=== PATIENT | female | born 1985 | race Caucasian/White ===

== ENCOUNTER 2016-08-09 15:43 | Emergency (ER) | payer OTHER | END 2016-08-09 17:26 | disposition home or self-care (01) | DX: S62.636A Displaced fracture of distal phalanx of right little finger, initial encounter for closed fracture (principal); W20.8XXA Other cause of strike by thrown, projected or falling object, initial encounter | CPT/HCPCS: 1040M; 29130; 73140; 99283 ==

== ENCOUNTER 2016-09-11 10:43 | Day surgery (SDC) | payer OTHER ==
[2016-09-11] MEDS ORDERED: ceFAZolin 2 GM/50 ML 50 ML IV ONE (10:50)
[2016-09-11] MEDS ORDERED: LACTATED RINGERS 1,000 ML IV ONE ×3 (11:00→17:27)
[2016-09-11] MEDS ORDERED: DEXAMETHASONE 4 MG/ML VIAL IVP ONE (17:00)
[2016-09-11] MEDS ORDERED: MIDAZOLAM 2 MG/2 ML VIAL IVP ONE (17:00)
[2016-09-11] MEDS ORDERED: METOCLOPRAMIDE 10 MG/2 ML VIAL IVP ONE (17:00)
[2016-09-11] MEDS ORDERED: fentaNYL 100 MCG/2 ML VIAL IVP ONE (17:00)
[2016-09-11] MEDS ORDERED: LIDOCAINE-MPF 2% 5 ML VIAL IM ONE (17:00)
[2016-09-11] MEDS ORDERED: KETOROLAC 30 MG/ML VIAL IVP ONE (17:00)
[2016-09-11] MEDS ORDERED: ONDANSETRON 4 MG/2 ML VIAL IVP ONE (17:00)
[2016-09-11] MEDS ORDERED: PROPOFOL 200 MG/20 ML VIAL IVP ONE (17:00)
[2016-09-11] MEDS ORDERED: BUPIVACAINE 0.5% PF 30 ML VIAL INFIL ONE (17:30)
[2016-09-11] MEDS: fentaNYL 100 MCG/2 ML VIAL ONE ×2 (18:56→19:14)
[2016-09-11] MEDS ORDERED: ACETAMINOPHEN 1,000 MG/100 ML 100 ML IV ONE (19:49)
== END 2016-09-11 10:44 | disposition home or self-care (01) ==
PROC: 0PST04Z Reposition Right Finger Phalanx with Internal Fixation Device, Open Approach (ICD-10-PCS; principal; 2016-09-11 11:45)
DX: S62.636A Displaced fracture of distal phalanx of right little finger, initial encounter for closed fracture (principal); W22.8XXA Striking against or struck by other objects, initial encounter; Y93.9 Activity, unspecified; Y92.39 Other specified sports and athletic area as the place of occurrence of the external cause; F41.9 Anxiety disorder, unspecified; F32.9 Major depressive disorder, single episode, unspecified
CPT/HCPCS: 26765; 81025; J0131; J0690; J7120

== ENCOUNTER 2016-10-17 07:26 | Outpatient (CLI) | payer OTHER | END 2016-10-17 07:27 | disposition home or self-care (01) | DX: M20.011 Mallet finger of right finger(s) (principal) ==

== ENCOUNTER 2016-10-20 14:25 | Emergency (ER) | payer OTHER | END 2016-10-20 16:58 | disposition home or self-care (01) | DX: M54.9 Dorsalgia, unspecified (principal); M54.2 Cervicalgia; W07.XXXA Fall from chair, initial encounter; Y99.0 Civilian activity done for income or pay; Z87.891 Personal history of nicotine dependence; R03.0 Elevated blood-pressure reading, without diagnosis of hypertension ==

== ENCOUNTER 2016-11-13 10:31 | Day surgery (SDC) | payer OTHER ==
[2016-11-13] MEDS ORDERED: ceFAZolin 2 GM/50 ML 50 ML IV ONE (10:47)
[2016-11-13 11:22] LABS: HCG UR QUAL NEGATIVE
[2016-11-13] MEDS ORDERED: LACTATED RINGERS 1,000 ML IV ONE (11:30)
[2016-11-13] MEDS ORDERED: BUPIVACAINE 0.25% PF 30 ML VIAL SUBQ ONE (13:33)
[2016-11-13] MEDS ORDERED: ONDANSETRON 4 MG/2 ML VIAL IVP ONE (13:33)
[2016-11-13] MEDS ORDERED: fentaNYL 100 MCG/2 ML VIAL IVP ONE (13:33)
[2016-11-13] MEDS ORDERED: PROPOFOL 200 MG/20 ML VIAL IVP ONE (13:33)
[2016-11-13] MEDS ORDERED: DEXAMETHASONE 4 MG/ML VIAL IVP ONE (13:33)
[2016-11-13] MEDS ORDERED: LIDOCAINE-MPF 2% 5 ML VIAL IM ONE (13:33)
[2016-11-13] MEDS ORDERED: BUPIVACAINE 0.5% PF 30 ML VIAL INFIL ONE ×2 (13:37)
[2016-11-13] MEDS ORDERED: MEPERIDINE 50 MG/ML SYRINGE ONE (14:55)
[2016-11-13] MEDS ORDERED: ACETAMINOPHEN 1,000 MG/100 ML 100 ML IV ONE (15:19)
[2016-11-13 15:48] VITALS: BP 123/52
--- NOTE | 2016-11-29 09:47 | OPERATIVE REPORT ---
DATE OF SURGERY: 11/13/2016 00:00:00 PREOPERATIVE DIAGNOSIS: Failed mallet finger repair, right small finger. POSTOPERATIVE DIAGNOSIS: Failed mallet finger repair, right small finger. PROCEDURE: Revision of right small finger mallet repair. SURGEON: Moises Underwood MD ASSISTANTS: None. MATERIAL TO LAB: None. SPONGE AND NEEDLE COUNTS: Correct. ANESTHESIA: General endotracheal. FINDINGS: Same. TOURNIQUET: Right arm at 42 minutes at 250 mmHg without complications. COMPLICATIONS: None. ESTIMATED BLOOD LOSS: None. SPECIMEN REMOVED AND CULTURES: None. IMPLANTS: JuggerKnot Mini anchor (1 mm). FLUIDS: 1000 mL of lactated Ringer's. CONDITION AT END OF PROCEDURE: Stable. DISPOSITION: PACU, then home. INDICATIONS: This is an otherwise healthy 31-year-old female who had sustained a mallet fracture on t he dorsal base of the distal phalanx of her right small finger. The patient had been managed conserv atively with a stack splint, which had failed to reduce her deformity. We then took her to the operat ing room and attempted a repair of the fragment over the base of the distal phalanx. A pull-through w carlos suture was used. However, in the intervening several weeks, she noted a recurrence of the deformity in her finger with increase in pain and dysfunction. Radiographs were reviewed, which showed recurrence of her deformity and volar subluxation of the dist al phalanx. We elected to bring her back to the operating room to revise her repair. PROCEDURE IN DETAIL: After consent and identification, the patient was brought to the operating room in the supine position on the operating litter. After induction of a general endotracheal anesthesia and appropriate monitoring, the right upper extr emity was outstretched on a hand table. The upper extremity was then prepped and draped free in the u sual sterile fashion for hand surgery. After an appropriate timeout was conducted, we pronated the forearm, exsanguinated the upper extremit y and inflated the tourniquet to 250 mmHg. With the forearm in a pronated position, we reopened the i ncision over the dorsal aspect of the distal interphalangeal joint. We identified a significant bony osteophyte, which had formed as a result of the callus from the original repair. This was carefully r emoved with a combination of curette and rongeur. Bony tissue was not sent. We identified the remnants of the insertion of the profundus extensor tendon and tagged this with a s uture. We then inserted a 1 mm JuggerKnot anchor into the distal phalanx using standard technique. Th e 3-0 FiberWire suture was then placed into the distal slip of the tendon in a modified Limon weave , tensioned, and then tied off. This affected a good repair and there was no further ventral subluxation of the distal phalanx. The wound was irrigated and closed with a running 3-0 nylon suture. Xeroform gauze was applied followed by a splint and sterile dressing. On completion of the procedure, the patient was extubated and transferred to the recovery room in goo d condition having tolerated the procedure well. JOB #: [id number] EXT JOB #:[id number]
== END 2016-11-13 10:32 | disposition home or self-care (01) ==
LOC: SDS 10:31
PROVIDERS: ATTEND Orthopaedic Surgery
PROC: 0XQV0ZZ Repair Right Little Finger, Open Approach (ICD-10-PCS; principal; 2016-11-13 11:25)
DX: M20.011 Mallet finger of right finger(s) (principal)
CPT/HCPCS: 26433; 81025; J0131; J0690; J7120

== ENCOUNTER 2017-12-15 22:46 | Emergency (ER) | payer OTHER ==
[2017-12-15 23:13] LABS: BILIRUBIN,URINE NEGATIVE (NEGATIVE); GLUCOSE, URINE (UA) NEGATIVE (NEGATIVE); KETONES,URINE (UA) NEGATIVE (NEGATIVE); LEUKOCYTE ESTERASE, URINE NEGATIVE (NEGATIVE); NITRITE,URINE NEGATIVE (NEGATIVE); OCCULT BLOOD,URINE MODERATE (NEGATIVE); PROTEIN,URINE NEGATIVE (NEGATIVE); UROBILINOGEN,URINE 0.2 (NORMAL) E.U./dL (NORMAL)
[2017-12-15 23:15] LABS: CLARITY,URINE CLEAR (CLEAR)
[2017-12-15 23:16] LABS: HCG UR QUAL NEGATIVE
[2017-12-15 23:18] LABS: BACTERIA,URINE Rare /HPF (None Seen); SQUAMOUS EPITHELIAL CELL,UR FEW Squamous (<= Few)
--- NOTE | 2017-12-15 23:32 | ED Physician Documentation ---
PD HPI FEMALE - Stated complaint Stated Complaint: FEMALE - Chief complaint Chief Complaint: Abd Pain - History obtained from History obtained from: Patient - History of Present Illness Timing - onset: Yesterday Timing - details: Gradual onset, Still present Associated symptoms: Vaginal bleeding Similar symptoms before: Work up / diagnostics Recently seen: Not recently seen - Additional information Additional information: Patient is a 32 year old female with a history of uterine fibroids and factor V leiden who is presenting to the emergency department for vaginal bleeding. Patient states that she soaked through numerous pads throughout the day today. patient has had fibroids partially removed in the past but she bled too much during the procedure so they had to stop. Patient has follow up next week but she called to convention worker nurse who told her to come to the emergency department. 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 GROWER: Fibroids : None HEENT: Other Psych: Depression, Anxiety, Panic attacks Musculoskeletal: Other Derm: None Other Past Medical History: Factor 5 blood disorder - Past Surgical History Past Surgical History: Yes Ortho: Spine surgery, Other /BULB GROWER: Other HEENT: Tonsil/Adenoidectomy - Present Medications Home Medications: Ambulatory Orders Medication Instructions Recorded Confirmed Norethindrone AC-Eth Estradiol 1 each PO DAILY 09/12/15 11/13/16 [Loestrin 21 1-20 Tablet] Sertraline HCl [Zoloft] 100 mg PO DAILY 09/12/15 12/15/17 Ibuprofen [Motrin] 800 mg PO Q8H PRN 09/11/16 11/13/16 - Allergies Allergies/Adverse Reactions: Allergies Allergy/AdvReac Type Severity Reaction Status Date / Time Latex, Natural Rubber Allergy Rash Verified 12/15/17 22:52 lorazepam [From Ativan] Allergy Unknown Verified 12/15/17 22:52 - Social History Does the pt smoke?: No Smoking Status: Never smoker Does the pt drink ETOH?: Yes Does the pt have substance abuse?: No - Immunizations Immunizations are current?: Yes - POLST Patient has POLST: No PD ED PE NORMAL - General General: Alert and oriented X 3, No acute distress, Well developed/nourished - HEENT HEENT: Atraumatic, PERRL - Neck Neck: Supple, no meningeal sign - Cardiac Cardiac: RRR - Respiratory Respiratory: No respiratory distress, Clear bilaterally - Abdomen Abdomen: Soft, Non tender, Non distended - Female Female : Deferred - Derm Derm: Normal color, Warm and dry - Extremities Extremities: No deformity - Neuro Neuro: Alert and oriented X 3 Eye Opening: Spontaneous Motor: Obeys Commands Verbal: Oriented GCS Score: 15 - Psych Psych: Normal mood Results - Vitals Vitals: Vital Signs - 24 hr 12/15/17 12/16/17 22:48 00:41 Temperature 37.2 C Heart Rate 87 91 Respiratory 16 16 Rate Blood Pressure 142/72 H 146/96 H O2 Saturation 99 95 Oxygen O2 Source Room air - Labs Labs: Laboratory Tests 12/15/17 12/15/17 12/15/17 23:05 23:05 23:23 WBC 9.0 RBC 4.07 L Hgb 10.7 L Hct 32.8 L MCV 80.5 L MCH 26.3 L MCHC 32.7 RDW 15.4 H Plt Count 391 MPV 7.0 L Neut # (Auto) 4.3 Lymph # (Auto) 4.0 H [place] # (Auto) 0.6 Eos # (Auto) 0.1 Baso # (Auto) 0.1 Absolute Nucleated RBC 0.00 Nucleated RBC % 0.0 PT INR APTT Sodium Potassium Chloride Carbon Dioxide Anion Gap BUN Creatinine Estimated GFR (MDRD) Glucose Calcium Total Bilirubin AST ALT Alkaline Phosphatase Total Protein Albumin Globulin Albumin/Globulin Ratio Lipase Urine Color YELLOW Urine Clarity CLEAR Urine pH 6.0 Ur Specific [place] 1.025 1.025 Urine Protein NEGATIVE Urine Glucose (UA) NEGATIVE Urine Ketones NEGATIVE Urine Occult Blood MODERATE H Urine Nitrite NEGATIVE Urine Bilirubin NEGATIVE Urine Urobilinogen 0.2 (NORMAL) Ur Leukocyte Esterase NEGATIVE Urine RBC 6-10 H Urine WBC 0-3 Ur Squamous Epith Cells FEW Squamous Urine Bacteria Rare Ur Microscopic Review INDICATED Urine Culture Comments NOT INDICATED Urine HCG, Qual NEGATIVE 12/15/17 12/15/17 23:23 23:23 WBC RBC Hgb Hct MCV MCH MCHC RDW Plt Count MPV Neut # (Auto) Lymph # (Auto) [place] # (Auto) Eos # (Auto) Baso # (Auto) Absolute Nucleated RBC Nucleated RBC % PT 10.4 INR 0.9 APTT 25.0 Sodium 138 Potassium 3.5 Chloride 109 Carbon Dioxide 21 Anion Gap 8.0 BUN 10 Creatinine 0.7 Estimated GFR (MDRD) 97 Glucose 138 H Calcium 9.0 Total Bilirubin 0.3 AST 19 ALT 19 Alkaline Phosphatase 46 Total Protein 7.4 Albumin 3.9 Globulin 3.5 Albumin/Globulin Ratio 1.1 Lipase 34 Urine Color Urine Clarity Urine pH Ur Specific [place] Urine Protein Urine Glucose (UA) Urine Ketones Urine Occult Blood Urine Nitrite Urine Bilirubin Urine Urobilinogen Ur Leukocyte Esterase Urine RBC Urine WBC Ur Squamous Epith Cells Urine Bacteria Ur Microscopic Review Urine Culture Comments Urine HCG, Qual PD MEDICAL DECISION MAKING - ED course Complexity details: reviewed old records, reviewed results, re-evaluated patient , considered differential, d/w patient, d/w human resources consultant ED course: Patient was seen and examined at bedside. patient's vital signs were within normal limits. Patient stated that her bleeding had actually started to improve. IV access was gained and labs were drawn. patient's hemoglobin was stable at 10.7 (there was no comparison). freight caller WILDLIFE MANAGER was contacted and the case was discussed with him. He recommended iron supplementation and possibly Lupron as an outpatient. Patient was asymptomatic aside from the bleeding. Patient was given detailed discharge and follow up instructions. Patient required no further work up at this time and was stable for discharge with outpatient follow up. - Sepsis Event Vital Signs: Vital Signs - 24 hr 12/15/17 12/16/17 22:48 00:41 Temperature 37.2 C Heart Rate 87 91 Respiratory 16 16 Rate Blood Pressure 142/72 H 146/96 H O2 Saturation 99 95 Oxygen O2 Source Room air Departure - Departure Disposition: 01 Home, Self Care Clinical Impression: Fibroids Condition: Good Instructions: ED Fibroids Follow-Up: Valentín Mcknight DO [Provider Admit Priv/Credential] - Within 3 Days Comments: Your vital signs and diagnostics were stable today. You should start taking iron three times a day. Make sure you take it with plenty of water and a stool softener as it can cause constipation. You should follow up with your doctor on sunday and you can talk to him/her about starting lupron injections. You should return to the emergency department for dizziness, syncope worsening or non stop symptoms.
[2017-12-15 23:45] LABS: BASOPHILS # (AUTO) 0.1 10^3/uL (0.0-0.1); BASOPHILS % (AUTO) 0.7 %; EOSINOPHILS # (AUTO) 0.1 10^3/uL (0.0-0.7); EOSINOPHILS % (AUTO) 0.8 %; HGB - HEMOGLOBIN 10.7 g/dL (12.0-16.0); LYMPHOCYTES % (AUTO) 44.1 %; MEAN CORPUSCULAR HEMOGLOBIN 26.3 pg (27.0-31.0); MEAN CORPUSCULAR HGB CONC 32.7 g/dL (32.0-36.0); MEAN CORPUSCULAR VOLUME 80.5 fL (81.0-99.0); MONOCYTES # (AUTO) 0.6 10^3/uL (0.0-1.0); NEUTROPHILS # (AUTO) 4.3 10^3/uL (1.5-6.6); NEUTROPHILS % (AUTO) 47.4 %; PLT - PLATELET COUNT 391 10^3/uL (130-450); RED BLOOD COUNT 4.07 10^6/uL (4.20-5.40); RED CELL DISTRIBUTION WIDTH 15.4 % (12.0-15.0)
[2017-12-15 23:52] LABS: INR 0.9 (0.8-1.2); PT - PROTHROMBIN TIME 10.4 secs (9.9-12.6)
[2017-12-15 23:54] LABS: ALBUMIN 3.9 g/dL (3.2-5.5); ALBUMIN/GLOBULIN RATIO 1.1 (1.0-2.2); BILIRUBIN,TOTAL 0.3 mg/dL (0.2-1.0); CREATININE 0.7 mg/dL (0.4-1.0); TOTAL PROTEIN 7.4 g/dL (6.7-8.2)
[2017-12-16 00:41] VITALS: BP 146/96
== END 2017-12-16 00:41 | disposition home or self-care (01) ==
LOC: ED 22:46
DX: N93.9 Abnormal uterine and vaginal bleeding, unspecified (principal); D25.9 Leiomyoma of uterus, unspecified; D68.51 Activated protein C resistance
CPT/HCPCS: 36415; 80053; 81001; 81003; 81025; 83690; 85025; 85610; 85730; 87086; 99283

== ENCOUNTER 2018-01-09 16:16 | Emergency (ER) | payer OTHER ==
[2018-01-09 17:02] LABS: BASOPHILS % (AUTO) 0.6 %; EOSINOPHILS % (AUTO) 0.5 %; HGB - HEMOGLOBIN 8.9 g/dL (12.0-16.0); LYMPHOCYTES # (AUTO) 3.1 10^3/uL (1.5-3.5); LYMPHOCYTES % (AUTO) 38.5 %; MEAN CORPUSCULAR HEMOGLOBIN 26.5 pg (27.0-31.0); MEAN CORPUSCULAR HGB CONC 32.8 g/dL (32.0-36.0); MEAN CORPUSCULAR VOLUME 80.8 fL (81.0-99.0); MEAN PLATELET VOLUME 6.2 fL (7.9-10.8); MONOCYTES # (AUTO) 0.7 10^3/uL (0.0-1.0); MONOCYTES % (AUTO) 8.2 %; NEUTROPHILS # (AUTO) 4.2 10^3/uL (1.5-6.6); NEUTROPHILS % (AUTO) 52.2 %; PLT - PLATELET COUNT 386 10^3/uL (130-450); RED BLOOD COUNT 3.35 10^6/uL (4.20-5.40); RED CELL DISTRIBUTION WIDTH 16.2 % (12.0-15.0)
[2018-01-09 17:22] LABS: ALBUMIN 3.5 g/dL (3.2-5.5); ALKALINE PHOSPHATASE 40 IU/L (42-121); ALT ALANINE AMINOTRANSFERASE 13 IU/L (10-60); AST ASPARTATE AMINOTRANSFERASE 17 IU/L (10-42); BILIRUBIN,TOTAL 0.2 mg/dL (0.2-1.0); BUN - BLOOD UREA NITROGEN 10 mg/dL (6-20); CALCIUM 8.7 mg/dL (8.5-10.3); CARBON DIOXIDE - CO2 24 mmol/L (21-32); CHLORIDE 104 mmol/L (101-111); CREATININE 0.7 mg/dL (0.4-1.0); GFR - MDRD 97 (>89); GLUCOSE 92 mg/dL (70-100); LIPASE 34 U/L (22-51); SODIUM 136 mmol/L (135-145); TOTAL PROTEIN 6.9 g/dL (6.7-8.2)
[2018-01-09 17:49] LABS: HCG,QUALITATIVE BLOOD NEGATIVE
--- NOTE | 2018-01-09 19:54 | ED Physician Documentation ---
PD HPI FEMALE - Stated complaint Stated Complaint: FEMALE /BLEEDING - Chief complaint Chief Complaint: Abd Pain - History obtained from History obtained from: Patient - History of Present Illness Timing - onset: How many weeks ago (2) Timing - details: Gradual onset, Still present Associated symptoms: Vaginal bleeding Similar symptoms before: Work up / diagnostics Recently seen: Clinic, Emergency Dept - Additional information Additional information: Patient is a 32 year old female with a history of fibroids and factor V leiden who is presenting to the emergency department for continual vaginal bleeding. Patient states that after her last er visit she did follow up outpatient and was doing better for a little while but today she filled multiple pads. Review of Systems Ten Systems: 10 systems reviewed and negative Constitutional: denies: Fever GI: denies: Abdominal Pain : reports: Vaginal bleeding. 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 : None HEENT: Other Psych: Depression, Anxiety, Panic attacks Musculoskeletal: Other Derm: None - Past Surgical History Past Surgical History: Yes Ortho: Spine surgery, Other /RAW STOCK DYEING MACHINE TENDER: Other HEENT: Tonsil/Adenoidectomy - Present Medications Home Medications: Ambulatory Orders Medication Instructions Recorded Confirmed Norethindrone AC-Eth Estradiol 1 each PO DAILY 09/12/15 11/13/16 [Loestrin 21 1-20 Tablet] Sertraline HCl [Zoloft] 100 mg PO DAILY 09/12/15 12/15/17 Ibuprofen [Motrin] 800 mg PO Q8H PRN 09/11/16 11/13/16 - Allergies Allergies/Adverse Reactions: Allergies Allergy/AdvReac Type Severity Reaction Status Date / Time Latex, Natural Rubber Allergy Rash Verified 01/09/18 16:42 lorazepam [From Ativan] Allergy Unknown Verified 01/09/18 16:42 - Social History Does the pt smoke?: No Smoking Status: Never smoker Does the pt drink ETOH?: Yes Does the pt have substance abuse?: No - Immunizations Immunizations are current?: Yes - POLST Patient has POLST: No PD ED PE NORMAL - Vitals Vital signs reviewed: Yes - General General: Alert and oriented X 3, No acute distress - HEENT HEENT: Atraumatic - Neck Neck: Supple, no meningeal sign - Cardiac Cardiac: RRR - Respiratory Respiratory: No respiratory distress - Abdomen Abdomen: Soft, Non distended - Derm Derm: Normal color, Warm and dry, No rash - Extremities Extremities: No deformity - Neuro Neuro: Alert and oriented X 3 Eye Opening: Spontaneous Results - Vitals Vitals: Vital Signs - 24 hr 01/09/18 01/09/18 01/09/18 16:39 20:00 20:43 Temperature 36.2 C L 36.8 C 36.5 C Heart Rate 81 88 78 Respiratory 20 16 16 Rate Blood Pressure 142/78 H 148/76 H 139/63 H O2 Saturation 100 100 99 Oxygen O2 Source Room air - Labs Labs: Laboratory Tests 01/09/18 01/09/18 16:58 16:58 WBC 8.0 RBC 3.35 L Hgb 8.9 L Hct 27.1 L MCV 80.8 L MCH 26.5 L MCHC 32.8 RDW 16.2 H Plt Count 386 MPV 6.2 L Neut # (Auto) 4.2 Lymph # (Auto) 3.1 [place] # (Auto) 0.7 Eos # (Auto) 0.0 Baso # (Auto) 0.0 Absolute Nucleated RBC 0.00 Nucleated RBC % 0.0 Sodium 136 Potassium 3.4 L Chloride 104 Carbon Dioxide 24 Anion Gap 8.0 BUN 10 Creatinine 0.7 Estimated GFR (MDRD) 97 Glucose 92 Calcium 8.7 Total Bilirubin 0.2 AST 17 ALT 13 Alkaline Phosphatase 40 L Total Protein 6.9 Albumin 3.5 Globulin 3.4 Albumin/Globulin Ratio 1.0 Lipase 34 Serum HCG, Qual NEGATIVE PD MEDICAL DECISION MAKING - ED course Complexity details: reviewed old records, reviewed results, re-evaluated patient , considered differential, d/w patient, d/w medical device sales consultant ED course: patient was seen and examined at bedside. labs were drawn. patient was seen at bedside by dispersion mixer ob. ultrasound was performed. when patient returned from ultrasound she was again evaluated by OB who stated she could follow up in the office tomorrow for re-evaluation. Patient was made aware of and was comfortable with the plan. Patient required no further work up and was stable for discharge with outpatient follow up. - Sepsis Event Vital Signs: Vital Signs - 24 hr 01/09/18 01/09/18 01/09/18 16:39 20:00 20:43 Temperature 36.2 C L 36.8 C 36.5 C Heart Rate 81 88 78 Respiratory 20 16 16 Rate Blood Pressure 142/78 H 148/76 H 139/63 H O2 Saturation 100 100 99 Oxygen O2 Source Room air Departure - Departure Disposition: 01 Home, Self Care Clinical Impression: Fibroids Condition: Good Instructions: ED Fibroids Follow-Up: Adam Quintanilla MD [Provider Admit Priv/Credential] - Comments: follow up with Dr. Quintanilla's office tomorrow. you may return to the emergency department at any time for new, worsening or uncontrollable symptoms. Discharge Date/Time: 01/09/18 20:47
[2018-01-09 20:46] VITALS: BP 139/63
--- NOTE | 2018-01-09 21:30 | Ultrasound Report ---
Procedure Date: 01/09/2018 Accession Number: [id number] / [id number] Procedure: US - Pelvic Complete CPT Code: FULL RESULT: EXAM: PELVIC ULTRASOUND EXAM DATE: 01/09/2018 07:31 PM. CLINICAL HISTORY: Vaginal bleeding. COMPARISON: None. TECHNIQUE: Realtime transabdominal pelvic scan performed to identify the uterus and adnexa and as an overview of other pelvic structures, with static image documentation. FINDINGS: Uterus: 9.5 x 4.8 x 6.7 cm, volume 160 cc. Anteverted position. Heterogeneous echotexture. Masses: 1. Fundal intramural 2.9 x 2.8 x 3.3 cm. 2. Mid submucosal/intramural 6.4 x 3.8 x 4.3 cm. 3. Posterior subserosal 2.0 x 1.9 x 2.6 Endometrium: 3 mm. Normal. Cervix: Unremarkable. Right Ovary: 2.0 x 3.3 x 2.2 cm, volume 8 cc. Normal echotexture and blood flow. Left Ovary: 3.3 x 1.2 x 2.9 cm, volume 6 cc. Normal echotexture and blood flow. Free Fluid: None. Other: None. IMPRESSION: 1. Fibroid uterus, including a large central submucosal fibroid. 2. No significant adnexal abnormalities are seen. RADIA
== END 2018-01-09 20:47 | disposition home or self-care (01) ==
LOC: ED 16:16
DX: D25.0 Submucous leiomyoma of uterus (principal); D25.1 Intramural leiomyoma of uterus; D25.2 Subserosal leiomyoma of uterus; D68.51 Activated protein C resistance
CPT/HCPCS: 36415; 76856; 80053; 83690; 84703; 85025; 99283

== ENCOUNTER 2020-08-05 20:01 | Outpatient (CLI) | payer OTHER | END 2020-08-05 20:02 | disposition home or self-care (01) | LOC: COV 20:01 | PROVIDERS: ATTEND Family Medicine | DX: R50.9 Fever, unspecified (principal); M79.10 Myalgia, unspecified site; R53.83 Other fatigue; R43.8 Other disturbances of smell and taste; Z20.822 Contact with and (suspected) exposure to COVID-19 ==

== ENCOUNTER 2021-04-02 12:40 | Emergency (ER) | payer OTHER ==
[2021-04-02 12:53] VITALS: BP 151/92
--- NOTE | 2021-04-02 13:26 | ED Physician Documentation ---
PD HPI ABD PAIN - Stated complaint Stated Complaint: FEMALE - Chief complaint Chief Complaint: Abd Pain - History obtained from History obtained from: Patient - Additional information Additional information: 35-year-old woman with known fibroids, menses started this morning at 5 AM and it is much heavier than her usual. She is feeling weak and dizzy with it. About 15 pads so far today. She does have a history of factor V Leiden but no history of DVT. 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 : None HEENT: Other Psych: Depression, Anxiety, Panic attacks Musculoskeletal: Other Derm: None - Past Surgical History Past Surgical History: Yes Ortho: Spine surgery, Other /CASINO SHIFT MANAGER: Other HEENT: Tonsil/Adenoidectomy - Present Medications Home Medications: Ambulatory Orders Medication Instructions Recorded Confirmed Norethindrone AC-Eth Estradiol 1 each PO DAILY 09/12/15 11/13/16 [Loestrin 21 1-20 Tablet] Sertraline HCl [Zoloft] 100 mg PO DAILY 09/12/15 12/15/17 Ibuprofen [Motrin] 800 mg PO Q8H PRN 09/11/16 11/13/16 Norgestimate-Ethinyl Estradiol 1 each PO TID #1 packet 04/02/21 [Ortho Tri-Cyclen 28 Tablet] - Allergies Allergies/Adverse Reactions: Allergies Allergy/AdvReac Type Severity Reaction Status Date / Time Latex, Natural Rubber Allergy Rash Verified 04/02/21 12:53 lorazepam [From Ativan] Allergy Unknown Verified 04/02/21 12:53 - Social History Does the pt smoke?: No Smoking Status: Never smoker Does the pt drink ETOH?: Yes Does the pt have substance abuse?: No - Immunizations Immunizations are current?: Yes - POLST Patient has POLST: No PD ED PE NORMAL - Vitals Vital signs reviewed: Yes (tachy) - General General: Alert and oriented X 3, No acute distress - Cardiac Cardiac: Other (tachy, reg) - Respiratory Respiratory: No respiratory distress - Abdomen Abdomen: Soft, Non tender - Neuro Neuro: Alert and oriented X 3, Normal speech Results - Vitals Vitals: Vital Signs - 24 hr 04/02/21 12:49 Temperature 35.9 C L Heart Rate 121 H Respiratory 16 Rate Blood Pressure 151/92 H O2 Saturation 99 Oxygen O2 Source Room air - Labs Labs: Laboratory Tests 04/02/21 04/02/21 04/02/21 13:25 13:25 13:25 WBC 9.1 RBC 4.79 Hgb 12.2 Hct 38.4 MCV 80.2 L MCH 25.5 L MCHC 31.8 L RDW 14.8 Plt Count 483 H MPV 8.5 Neut # (Auto) 5.2 Lymph # (Auto) 2.7 [place] # (Auto) 1.0 Eos # (Auto) 0.1 Baso # (Auto) 0.0 Absolute Nucleated RBC 0.00 Nucleated RBC % 0.0 Sodium 138 Potassium 3.9 Chloride 105 Carbon Dioxide 22 Anion Gap 11.0 BUN 8 Creatinine 0.8 Estimated GFR (MDRD) 82 L Glucose 113 H Calcium 9.4 Total Bilirubin 0.7 AST 26 ALT 26 Alkaline Phosphatase 56 Total Protein 8.6 H Albumin 5.0 Globulin 3.6 Albumin/Globulin Ratio 1.4 Lipase 32 Serum HCG, Qual Urine Color Urine Clarity Urine pH Ur Specific [place] Urine Protein Urine Glucose (UA) Urine Ketones Urine Occult Blood Urine Nitrite Urine Bilirubin Urine Urobilinogen Ur Leukocyte Esterase Urine RBC Urine WBC Ur Squamous Epith Cells Urine Bacteria Ur Microscopic Review Urine Culture Comments Urine HCG, Qual Blood Type A POSITIVE Antibody Screen NEGATIVE 04/02/21 04/02/21 13:25 13:25 WBC RBC Hgb Hct MCV MCH MCHC RDW Plt Count MPV Neut # (Auto) Lymph # (Auto) [place] # (Auto) Eos # (Auto) Baso # (Auto) Absolute Nucleated RBC Nucleated RBC % Sodium Potassium Chloride Carbon Dioxide Anion Gap BUN Creatinine Estimated GFR (MDRD) Glucose Calcium Total Bilirubin AST ALT Alkaline Phosphatase Total Protein Albumin Globulin Albumin/Globulin Ratio Lipase Serum HCG, Qual NEGATIVE Urine Color RED/BLOODY Urine Clarity CLOUDY Urine pH 7.0 Ur Specific [place] <=1.005 Urine Protein >=300 H Urine Glucose (UA) NEGATIVE Urine Ketones 15 H Urine Occult Blood LARGE H Urine Nitrite POSITIVE H Urine Bilirubin NEGATIVE Urine Urobilinogen >=8.0 H Ur Leukocyte Esterase MODERATE H Urine RBC TNTC H Urine WBC 4-5 Ur Squamous Epith Cells FEW Squamous Urine Bacteria Moderate H Ur Microscopic Review INDICATED Urine Culture Comments INDICATED Urine HCG, Qual NEGATIVE Blood Type Antibody Screen PD MEDICAL DECISION MAKING - ED course ED course: 35-year-old woman with known fibroids presents with heavy vaginal bleeding. She is not and her H&H is good. She is started on hyperal dose control. Note she has factor V Leiden and she was encouraged to ambulate often and stop the control WES. We discussed her urinalysis results, she is having no symptoms relatable to UTI and as such watchful waiting was advised. Departure - Departure Disposition: 01 Home, Self Care Clinical Impression: Excessive vaginal bleeding Condition: Good Record reviewed to determine appropriate education?: Yes Instructions: ED Bleed Irregular Vaginal Follow-Up: Irena Rodriguez MD [Provider Admit Priv/Credential] - Prescriptions: Norgestimate-Ethinyl Estradiol [Ortho Tri-Cyclen 28 Tablet] 1 each PO TID #1 packet Comments: As discussed, as soon as the bleeding stops I would recommend going down to the control for just once a day for just a couple more days. We usually do it for longer, but given the factor V issue seems reasonable to get you off of it as soon as possible. Follow-up with gynecology, the numbers on this form. Return for new or worsening symptoms. Discharge Date/Time: 04/02/21 14:15
[2021-04-02 13:47] LABS: BILIRUBIN,URINE NEGATIVE (NEGATIVE); GLUCOSE, URINE (UA) NEGATIVE (NEGATIVE); KETONES,URINE (UA) 15 mg/dL (NEGATIVE); LEUKOCYTE ESTERASE, URINE MODERATE (NEGATIVE); NITRITE,URINE POSITIVE (NEGATIVE); OCCULT BLOOD,URINE LARGE (NEGATIVE); PROTEIN,URINE >=300 mg/dL (NEGATIVE); UROBILINOGEN,URINE >=8.0 E.U./dL (NORMAL)
[2021-04-02 13:51] LABS: BASOPHILS % (AUTO) 0.3 %; EOSINOPHILS # (AUTO) 0.1 10^3/uL (0.0-0.7); EOSINOPHILS % (AUTO) 1.5 %; HCT - HEMATOCRIT 38.4 % (37.0-47.0); HGB - HEMOGLOBIN 12.2 g/dL (12.0-16.0); LYMPHOCYTES # (AUTO) 2.7 10^3/uL (1.5-3.5); LYMPHOCYTES % (AUTO) 30.1 %; MEAN CORPUSCULAR HEMOGLOBIN 25.5 pg (27.0-31.0); MEAN CORPUSCULAR HGB CONC 31.8 g/dL (32.0-36.0); MEAN CORPUSCULAR VOLUME 80.2 fL (81.0-99.0); MEAN PLATELET VOLUME 8.5 fL (7.9-10.8); MONOCYTES % (AUTO) 10.7 %; NEUTROPHILS # (AUTO) 5.2 10^3/uL (1.5-6.6); NEUTROPHILS % (AUTO) 57.2 %; PLT - PLATELET COUNT 483 10^3/uL (130-450); RED BLOOD COUNT 4.79 10^6/uL (4.20-5.40); RED CELL DISTRIBUTION WIDTH 14.8 % (12.0-15.0); WHITE BLOOD COUNT 9.1 x10^3/uL (4.8-10.8)
[2021-04-02 13:56] LABS: ALBUMIN/GLOBULIN RATIO 1.4 (1.0-2.2); BILIRUBIN,TOTAL 0.7 mg/dL (0.2-1.0); CALCIUM 9.4 mg/dL (8.5-10.3); CREATININE 0.8 mg/dL (0.4-1.0); POTASSIUM 3.9 mmol/L (3.5-5.0); TOTAL PROTEIN 8.6 g/dL (6.7-8.2)
[2021-04-02 14:03] LABS: CLARITY,URINE CLOUDY (CLEAR); HCG UR QUAL NEGATIVE
[2021-04-02 14:04] LABS: RBC,URINE TNTC /HPF (0-5)
[2021-04-02 14:05] LABS: BACTERIA,URINE Moderate /HPF (None Seen); SQUAMOUS EPITHELIAL CELL,UR FEW Squamous (<= Few)
[2021-04-02 14:12] LABS: HCG,QUALITATIVE BLOOD NEGATIVE
== END 2021-04-02 14:15 | disposition home or self-care (01) ==
LOC: ED 12:40
DX: N92.0 Excessive and frequent menstruation with regular cycle (principal); D25.9 Leiomyoma of uterus, unspecified; D68.51 Activated protein C resistance
CPT/HCPCS: 36415; 80053; 81001; 81003; 81025; 83690; 84703; 85025; 86850; 86900; 86901; 87086; 99283; 99284

== ENCOUNTER 2021-08-13 09:19 | Outpatient (CLI) | payer OTHER ==
--- NOTE | 2021-08-13 14:22 | Ultrasound Report ---
PROCEDURE: Pelvic w/Transvaginal INDICATIONS: IUD SURVEILLANCE TECHNIQUE: Real-time scanning was performed of the pelvic organs, with image documentation. Additional endovagi nal scanning was necessary due to incomplete visualization of the adnexal and endometrial structures by transabdominal scanning. COMPARISON: 01/09/2018 FINDINGS: No pathologic free abdominal or pelvic fluid. Uterus: Uterus is heterogenous and normal in size at 5.0 x 5.5 x 5.7 cm cm. The endometrium measure s 14 mm in combined thickness. Several uterine fibroids present. The largest is in the right anterio r margin myometrium measuring 2.4 x 2.8 x 2.9 cm, similar in size of prior exam. In the endometrium, there is a focal echogenicity reflecting possible polyp measuring 1.7 x 1.2 x 0.9 cm. No evidence of intrauterine device. Ovaries: Right ovary measures 4.2 x 2.4 x 2.7 cm, 14.6 cc volume. A dominant follicle measuring 2.0 x 1.7 cm. The left ovary is not visualized. IMPRESSION: 1. No evidence of intrauterine device. 2. Focal endometrial echogenicity could reflect polyp, 1.7 cm. Consider follow-up saline infusion son ogram 3. Intrauterine fibroids, stable from the prior Reviewed by: Ynaiv Cameron MD on 08/13/2021 1:21 PM [facility] Approved by: Yaniv Cameron MD on 08/13/2021 1:21 PM [place] Station ID: [id number]
== END 2021-08-13 09:20 | disposition home or self-care (01) ==
LOC: DI 09:19
PROVIDERS: ATTEND Obstetrics & Gynecology
DX: Z30.431 Encounter for routine checking of intrauterine contraceptive device (principal); R93.5 Abnormal findings on diagnostic imaging of other abdominal regions, including retroperitoneum; D25.9 Leiomyoma of uterus, unspecified

== ENCOUNTER 2021-09-21 15:24 | Outpatient (CLI) | payer OTHER ==
--- NOTE | 2021-09-21 17:12 | XRAY Report ---
PROCEDURE: Abdomen 1 View X-Ray INDICATIONS: IUD SURVEILLANCE TECHNIQUE: One view of the abdomen acquired. COMPARISON: None FINDINGS: Surgical changes and devices: Post fixation changes in visualized portion of upper lumbar spine at L1 -L3 levels are seen. No intrauterine device is identified. Bowel: Bowel gas pattern is normal. Soft tissues: No suspicious abdominal calcifications. Visualized solid organ contours appear normal in size. Bones: No suspicious bony lesions. IMPRESSION: 1. Intrauterine device is not seen in lower abdomen or pelvis. Fixation hardware in upper lumbar spin e. 2. No evidence of bowel obstruction or gross free air. Reviewed by: Bright Silver MD on 09/21/2021 5:11 PM PDT Approved by: Bright Silver MD on 09/21/2021 5:11 PM PDT Station ID: [id number]
== END 2021-09-21 15:25 | disposition home or self-care (01) ==
LOC: DI 15:24
PROVIDERS: ATTEND Obstetrics & Gynecology
DX: Z30.431 Encounter for routine checking of intrauterine contraceptive device (principal)